=== PATIENT | male | born 1970 | race Caucasian/White ===

== ENCOUNTER → 2016-09-22 | Outpatient (CLI) | payer BC ==
[~2016-09-22] VITALS: Ht 175.3 cm; Wt 171.2 kg
[~2016-09-22] MED LIST: ASPIRIN E.C. 8181 MG PO; FASTIN30 MG PO; HCTZ 25MG TAB25 MG PO; MOBIC15 MG PO; MOTRIN 200200 MG/TAB PO; NITROSTAT0.4 MG/TAB SL; NORCO 325 MG-51 TAB PO; NYSTATIN POWDER15 GM TOP; PEPCID 20MG TAB20 MG PO; PHENTERMINE15 MG PO; TOPAMAX50 MG PO; TOPROL XL 50MG50 MG PO; ZESTORETIC 25 M1 TAB PO; ZOCOR 40MG40 MG PO
[2016-09-22 10:01] VITALS: BP 162/84; PULSE 69
== END ==
LOC: LIGHT 03-03 16:53
DX: E88.81 Metabolic syndrome and other insulin resistance (principal); I10 Essential (primary) hypertension; R73.01 Impaired fasting glucose; E66.01 Morbid (severe) obesity due to excess calories; Z68.43 Body mass index [BMI] 50.0-59.9, adult

== ENCOUNTER → 2016-11-03 | Outpatient (CLI) | payer OTHER ==
[~2016-11-03] VITALS: Ht 175.3 cm; Wt 170.1 kg
[2016-11-03 09:06] VITALS: BP 112/82; PULSE 88
== END ==
LOC: LIGHT 09:00
DX: E88.81 Metabolic syndrome and other insulin resistance (principal); I10 Essential (primary) hypertension; E66.01 Morbid (severe) obesity due to excess calories; Z68.43 Body mass index [BMI] 50.0-59.9, adult

== ENCOUNTER → 2016-12-01 | Outpatient (CLI) | payer OTHER ==
[~2016-12-01] VITALS: Ht 175.3 cm; Wt 171.9 kg
[2016-12-01 10:43] VITALS: BP 134/80; PULSE 71
== END ==
LOC: LIGHT 10:40
DX: E88.81 Metabolic syndrome and other insulin resistance (principal); I10 Essential (primary) hypertension; E66.01 Morbid (severe) obesity due to excess calories; Z68.43 Body mass index [BMI] 50.0-59.9, adult; Z71.3 Dietary counseling and surveillance

== ENCOUNTER → 2019-05-02 | Outpatient (CLI) | payer OTHER ==
[~2019-05-02] VITALS: Ht 175.3 cm; Wt 173.0 kg
[~2019-05-02] MED LIST changes: +LIPITOR20 MG PO; +NEURONTIN300 MG/CAP PO; +VYVANSE30 MG PO
[2019-05-02 14:08] VITALS: BP 136/76; PULSE 72
== END ==
LOC: LIGHT 10:23
DX: E88.81 Metabolic syndrome and other insulin resistance (principal); I10 Essential (primary) hypertension; R73.01 Impaired fasting glucose; E66.01 Morbid (severe) obesity due to excess calories; Z68.43 Body mass index [BMI] 50.0-59.9, adult; Z71.3 Dietary counseling and surveillance
CPT/HCPCS: G0463

== ENCOUNTER → 2019-06-06 | Outpatient (CLI) | payer OTHER ==
[~2019-06-06] VITALS: Ht 175.3 cm; Wt 167.6 kg
[2019-06-06 13:31] VITALS: BP 136/76; PULSE 84
== END ==
LOC: LIGHT 13:08
DX: E88.81 Metabolic syndrome and other insulin resistance (principal); I10 Essential (primary) hypertension; R73.01 Impaired fasting glucose; E66.01 Morbid (severe) obesity due to excess calories; Z68.43 Body mass index [BMI] 50.0-59.9, adult; Z71.3 Dietary counseling and surveillance
CPT/HCPCS: G0463